=== PATIENT | female | born 1955 | race Two or more races ===

== ENCOUNTER → 2017-08-05 | Outpatient (CLI) | payer OTHER ==
[2017-08-05 11:59] LABS: BASOPHIL % 0.4 % (0-2); PLATELET COUNT 282 x10^3mcL (130-400); RED BLOOD CELLS 4.73 M/mm3 (4.10-5.10); RED CELL DISTRIBUTION WIDTH 13.1 % (11.5-14.5)
[2017-08-05 12:11] LABS: CALCIUM 9.2 mg/dL (8.5-10.1); CARBON DIOXIDE 26.7 mmol/L (21-32); CHLORIDE SERUM 103 mmol/L (98-107); CHOLESTEROL 195 mg/dL (<200); CREATININE SERUM 0.7 mg/dL (0.6-1.0); GFR1 > 60 mL/min; GLUCOSE SERUM 100 mg/dL (74-106); POTASSIUM SERUM 4.1 mmol/L (3.5-5.1); SODIUM SERUM 136 mmol/L (136-145); TRIGLYCERIDES 142 mg/dL (<150)
[2017-08-05 12:41] LABS: CHOLESTEROL/HDL RATIO 2.9; HDL CHOLESTEROL 68 mg/dL (40-60)
[2017-08-05 16:30] LABS: IRON 86 ug/dL (50-170); TOTAL IRON BINDING CAPACITY 248 ug/dL (250-450)
== END | disposition home or self-care (01) ==
LOC: LB 11:00
PROVIDERS: Internal Medicine
DX: R42 Dizziness and giddiness (principal); R63.0 Anorexia; Z76.89 Persons encountering health services in other specified circumstances; G47.00 Insomnia, unspecified

== ENCOUNTER → 2018-02-08 | Outpatient (CLI) | payer OTHER ==
[2018-02-08 08:48] LABS: BASOPHIL % 0.4 % (0-2); PLATELET COUNT 284 x10^3mcL (130-400); RED CELL DISTRIBUTION WIDTH 13.1 % (11.5-14.5)
[2018-02-08 09:15] LABS: ALBUMIN 3.7 g/dL (3.4-5.0); ALKALINE PHOSPHATASE 89 U/L (46-116); ALT/SGPT 40 U/L (14-59); AST/SGOT 20 U/L (15-37); BILIRUBIN DIRECT 0.13 mg/dL (0.0-0.2); BILIRUBIN TOTAL 0.63 mg/dL (0.20-1.00); CALCIUM 9.5 mg/dL (8.5-10.1); CARBON DIOXIDE 29.7 mmol/L (21-32); CHLORIDE SERUM 104 mmol/L (98-107); CHOLESTEROL 200 mg/dL (<200); CREATININE SERUM 0.7 mg/dL (0.6-1.0); GFR1 > 60 mL/min; GLUCOSE SERUM 97 mg/dL (74-106); POTASSIUM SERUM 3.6 mmol/L (3.5-5.1); SODIUM SERUM 142 mmol/L (136-145); TOTAL PROTEIN, SERUM 7.4 g/dL (6.4-8.2); TRIGLYCERIDES 137 mg/dL (<150); URIC ACID 3.9 mg/dL (2.6-6.0)
[2018-02-08 09:19] LABS: CHOLESTEROL/HDL RATIO 2.8; HDL CHOLESTEROL 72 mg/dL (40-60)
== END | disposition home or self-care (01) ==
LOC: LB 07:50
PROVIDERS: Internal Medicine
DX: Z00.00 Encounter for general adult medical examination without abnormal findings (principal); M17.0 Bilateral primary osteoarthritis of knee
CPT/HCPCS: 77067